=== PATIENT | female | born 1985 | race Caucasian/White ===

== ENCOUNTER 2023-06-01 06:59 | Emergency (ER) | payer OTHER ==
[2023-06-01 07:11] VITALS: BP 136/89; O2SAT 98
--- NOTE | 2023-06-01 07:22 | ED Physician Documentation ---
PD HPI HEENT - Stated complaint Stated Complaint: THROAT PX - Chief complaint Chief Complaint: Heent - History obtained from History obtained from: Patient - Additional information Additional information: The patient comes to the emergency department chief complaint of sore throat that started yesterday. She states at first it was just on the left side but then it kept her up all night because the pain and by the time she woke up this morning, her entire throat hurt. She denies any difficulty breathing. She is able to swallow her saliva. No fevers, chills, body aches, runny nose, or cough. No sick contacts. She is otherwise healthy. No other complaints at this time. The patient states she has had strep throat multiple times before. PD PAST MEDICAL HISTORY - Past Medical History Past Medical History: Yes Psych: Depression - Past Surgical History Past Surgical History: Yes General: Cholecystectomy - Present Medications Home Medications: Ambulatory Orders Medication Instructions Recorded Confirmed clindamycin HCL [Clindamycin HCl] 300 mg PO Q8HR #21 cap 06/01/23 - Allergies Allergies/Adverse Reactions: Allergies Allergy/AdvReac Type Severity Reaction Status Date / Time amoxicillin Allergy Hives Verified 06/01/23 07:11 ethinyl estradiol Allergy Hives Verified 06/01/23 07:11 [From Ortho-Cyclen (21)] norgestimate Allergy Hives Verified 06/01/23 07:11 [From Ortho-Cyclen (21)] - Social History Does the pt smoke?: No Smoking Status: Never smoker PD ED PE NORMAL - Vitals Vital signs reviewed: Yes - General General: Alert and oriented X 3, No acute distress, Well developed/nourished - HEENT HEENT: Atraumatic, PERRL, EOMI, Moist mucous membranes, Other (3+ tonsils, exudates bilaterally with erythema. Throat is symmetrical.) - Neck Neck: Supple, no meningeal sign - Respiratory Respiratory: No respiratory distress - Derm Derm: Warm and dry - Extremities Extremities: No deformity - Neuro Neuro: Alert and oriented X 3 - Psych Psych: Normal mood, Normal affect Results - Vitals Vitals: Vital Signs - 24 hr 06/01/23 07:07 Temperature 36.5 C Heart Rate 78 Respiratory 18 Rate Blood Pressure 136/89 H O2 Saturation 98 Oxygen O2 Source Room air - Labs Labs: Laboratory Tests 06/01/23 07:13 Group A Strep Rapid Negative PD Medical Decision Making - ED course Complexity details: reviewed results, re-evaluated patient, considered differential, d/w patient ED course: The patient was worked up with a rapid strep test for her exudative pharyngitis. She had had strep multiple times before and a suspected, based on the appearanc e of her throat, that she had this again. She was allergic to amoxicillin, so I did order clindamycin. Departure - Departure Disposition: 01 Home, Self Care Clinical Impression: Tonsillitis with exudate Condition: Stable Instructions: ED Tonsillitis Prescriptions: clindamycin HCL [Clindamycin HCl] 300 mg PO Q8HR #21 cap Comments: Your rapid strep test is negative. While it is possible that you have a viral illness, the inflammation and white patches on your tonsils are suggestive of a bacterial tonsillitis. This may be caused by one of the other strep groups that is slightly different from the one that is tested for in the rapid strep test. You been started on antibiotics for this today. Please pick the rest your antibiotics up at the [facility] pharmacy in [place], where your prescription has been electronically transmitted. If you continue to have symptoms after the course of antibiotics, you should be reevaluated. Forms: Activity restrictions
[2023-06-01 07:34] LABS: RAPID STREP SCREEN Negative (Negative)
[2023-06-01] MEDS ORDERED: CLINDAMYCIN 150 MG CAPSULE PO STA (07:49)
[2023-06-01] MEDS ORDERED: DEXAMETHASONE 10 MG/ML VIAL IM STA (07:53)
== END 2023-06-01 08:13 | disposition home or self-care (01) ==
LOC: ED 06:59
DX: J03.90 Acute tonsillitis, unspecified (principal)
CPT/HCPCS: 87070; 87077; 87430; 96372; 99283; A9270